=== PATIENT | male | born 1980 ===

== ENCOUNTER 2023-04-09 17:55 | Emergency (ER) | payer BC ==
[2023-04-09 19:29] VITALS: BP 137/79; PULSE 75
[2023-04-09] MEDS ORDERED: methylPREDNISolone Sodium Succinate 40 MG/1 ML SDV IM STA (20:42)
== END 2023-04-09 21:31 | disposition home or self-care (01) ==
LOC: MW.ED 17:55
DX: J32.9 Chronic sinusitis, unspecified (principal); H10.9 Unspecified conjunctivitis; B96.89 Other specified bacterial agents as the cause of diseases classified elsewhere
CPT/HCPCS: 96372; 99283; J2920